=== PATIENT | female | born 1970 | race Caucasian/White ===

== ENCOUNTER 2017-09-05 09:25 | Day surgery (SDC) | payer MEDICAID ==
[2017-09-05 09:55] VITALS: BP 106/72
--- NOTE | 2017-09-05 14:15 | RADIOLOGY REPORT (SQ) ---
EXAM DESCRIPTION: SKULL 1-3 VIEWS COMPLETED DATE/TIME: 09/05/2017 11:28 am REASON FOR STUDY: PREPROCEDURE COMPARISON: None. TECHNIQUE: Finch and lateral views of the skull are presented. LIMITATIONS: None. FINDINGS: The calvarium is intact. There is been surgical repair of right orbit right maxillary sin us. The paranasal sinuses are normally aerated. The zygomatic arches are normal. Facial bones are acutely intact. IMPRESSION: Surgical changes. No acute abnormality. TECHNICAL DOCUMENTATION: JOB ID: [id number] [employer]- All Rights Reserved
== END 2017-09-05 11:30 | disposition home or self-care (01) ==
LOC: RAD 09:25
PROVIDERS: ATTEND Specialist
DX: M54.16 Radiculopathy, lumbar region (principal); Z53.9 Procedure and treatment not carried out, unspecified reason
CPT/HCPCS: 70250